=== PATIENT | male | born 1955 | race African-American/Black ===

== ENCOUNTER 2022-02-02 19:32 | Inpatient (IN) | payer OTHER, MEDICARE ==
[~2022-02-02] VITALS: Ht 182.9 cm; Wt 76.3 kg
[2022-02-02] MEDS ORDERED: ALBUTEROL SULFATE 2.5 MG/3 ML NEBU ONE (19:40)
[2022-02-02] MEDS ORDERED: IPRATROPIUM BROMIDE 0.5 MG/2.5 ML NEBU ONE (19:41)
[2022-02-02] MEDS ORDERED: methylPREDNISolone SOD SUCC 125 MG/2 ML VIAL IV ONE (19:45)
[2022-02-02] MEDS ORDERED: ALBUTEROL SULFATE 2.5 MG/3 ML NEBU NEB ONE (19:45)
[2022-02-02] MEDS ORDERED: IPRATROPIUM BROMIDE 0.5 MG/2.5 ML NEBU NEB ONE (19:45)
[2022-02-02] MEDS ORDERED: methylPREDNISolone SOD SUCC 125 MG/2 ML VIAL ONE (20:04)
[2022-02-02 20:07] LABS: HEMATOCRIT 42.6 % (36.7-47.1); MEAN CORPUSCULAR HEMOGLOBIN 30.1 uug (23.8-33.4); MEAN CORPUSCULAR VOLUME 92.7 fL (73.0-96.2); PLATELET COUNT (AUTO) 226 K/uL (152-348)
[2022-02-02] MEDS ORDERED: NITROGLYCERIN 0.4 MG/TAB BOTTLE SL ONE ×2 (20:09→20:15)
--- NOTE | 2022-02-02 20:10 | NUR ---
Administered 1st tab of Nitro.
--- NOTE | 2022-02-02 20:20 | NUR ---
Administered 2nd dose of Nitro.
[2022-02-02 20:21] LABS: ABG BASE EXCESS -3.2 mmol/L; ABG HCO3 22.8 mmol/L; ABG PCO2 44.4 mmHg (35.0-45.0); ABG PH 7.329 (7.350-7.450); ABG PO2 66.4 mmHg (75.0-100.0); ABG SITE LEFT RADIAL; COHb 0.8 % (0.5-1.5); MetHb 0.3 % (0.0-1.5); O2Hb 92.1 % (94.0-97.0); VENT MODE BIPAP
--- NOTE | 2022-02-02 20:27 | NUR ---
Administered 3rd dose of Nitro.
[2022-02-02 20:28] LABS: ALANINE AMINOTRANSFERASE 26 U/L (16-63); ALKALINE PHOSPHATASE 130 U/L (50-136); ASPARTATE AMINOTRANSFERASE 19 U/L (15-37); BILIRUBIN,DIRECT 0.1 mg/dL (0.0-0.2); BILIRUBIN,TOTAL 0.4 mg/dL (0.2-1.0); CARBON DIOXIDE 30 mmol/L (21-32); CHLORIDE 102 mmol/L (98-107); CREATININE 2.2 mg/dL (0.6-1.3); POTASSIUM 3.9 mmol/L (3.5-5.1); TOTAL PROTEIN, SERUM 6.6 g/dL (6.4-8.2); UREA NITROGEN, BLOOD 43 mg/dL (7-18)
[2022-02-02 21:12] LABS: GLUCOSE 429 mg/dL (74-106)
[2022-02-02] MEDS ORDERED: FUROSEMIDE 40 MG/4 ML VIAL IV ONE (21:30)
[2022-02-02] MEDS ORDERED: FUROSEMIDE 40 MG/4 ML VIAL ONE (21:45)
[2022-02-02] MEDS ORDERED: ASPIRIN 81 MG TAB.CHEW PO ONE (22:00)
[2022-02-02] MEDS ORDERED: INSULIN REGULAR, HUMAN 300 UNIT/3 ML VIAL SQ ONE (22:00)
[2022-02-02] MEDS ORDERED: ASPIRIN 81 MG TAB.CHEW ONE ×2 (22:20→22:34)
[2022-02-02] MEDS ORDERED: INSULIN LISPRO 300 UNIT/3 ML VIAL SQ ONE (22:23)
[2022-02-02] MEDS ORDERED: INSULIN REGULAR, HUMAN 300 UNIT/3 ML VIAL ONE (22:29)
[2022-02-02] MEDS ORDERED: CEFTRIAXONE 1 G in IV DEXTROSE 5% 50 ML IV ONE (22:30)
--- NOTE | 2022-02-02 23:14 | NUR ---
Received call from patient's , Trudi Hodge, , will call back later with list of medications.
[2022-02-02] MEDS ORDERED: CEFTRIAXONE /D5W 50ML IVPB **ER PYXIS IV ONE ×2 (23:16→23:20)
[2022-02-03] VITALS (10 sets, daily range): BP systolic 128–180; BP diastolic 88–149
[2022-02-03] MEDS ORDERED: INSULIN REGULAR, HUMAN 300 UNIT/3 ML VIAL SQ PRN (00:45)
[2022-02-03] MEDS ORDERED: DEXTROSE 50% 50 ML DISP.SYRIN IV PRN ×2 (00:45→08:30)
[2022-02-03] MEDS ORDERED: CLONIDINE HCL 0.1 MG TABLET PO PRN (01:00)
[2022-02-03] MEDS ORDERED: MORPHINE SULFATE 2 MG/1 ML DISP.SYRIN IV PRN (01:00)
[2022-02-03] MEDS ORDERED: ONDANSETRON 4 MG/2 ML VIAL IV PRN (01:00)
[2022-02-03] MEDS ORDERED: ACETAMINOPHEN 325 MG TABLET PO PRN (01:00)
--- NOTE | 2022-02-03 01:00 | NUR ---
Pt will admitted to [facility], under the care of Dr. Ontiveros and Dr. Chang (family service aide) to rm 318. Admitting dx N-Stemi.
--- NOTE | 2022-02-03 01:04 | NUR ---
Report given to nurse Altamirano.
--- NOTE | 2022-02-03 02:30 | NUR ---
Pt stable, V/S are WNL, AOX4, no signs of sob, SpO2 100%. Transported via gurney with O2 on via nasal cannula at 3Lpm, to [facility], Rm 318, received by nurse Evelia. Belongings including walker were brought with the patient.
[2022-02-03] MEDS ORDERED: ALBUTEROL SULFATE 2.5 MG/3 ML NEBU NEB PRN (03:30)
--- NOTE | 2022-02-03 04:00 | NUR ---
Received 66 yr old male form home diagnosed with CHF/ARF/ACS/?PNA under Dr. Ontiveros. AAOx4. No SOB noted. Denies any chest pain or discomfort. Noted non-productive cough. O2 at 1 LPM sating at 97%. BP 180/149. Administered Catapres as ordered for SBP >160. Noted swelling of right foot, non-pitting. Has peripheral neuropathy on BLE and mild weakness on right hand. Glaucoma on both eyes. Uses walker to ambulate. Skin is intact. IV site on right hand 20g intact and patent. Routine admission done. All needs attended. Safety precautions maintained.
[2022-02-03] MEDS: PANTOPRAZOLE SODIUM 40 MG TABLET.DR PO SCH (06:12)
[2022-02-03] MEDS: hydrALAZINE HCL 25 MG TABLET PO PRN ×2 (07:30→14:34)
[2022-02-03] MEDS ORDERED: BLOOD SUGAR DIAGNOSTIC 1 EACH STRIP VI SCH (07:30)
--- NOTE | 2022-02-03 07:35 | NUR ---
elevated trop and bp 180/114 hr 84. pt is asymptomatic. md notified. will cont to monitor. Addendum: 02/03/22 at 0754 by ARIK NEGRON RN no new order given Addendum: 02/03/22 at 0910 by ARIK NE[address]ON RN dr. hall ordered labetalol 10mg iv q4hprn. for sytolic >160. Addendum: 02/03/22 at 0911 by ARIK NEGRON RN bp reassessment 158/91 hr 86,. will cobnt to monitor
[2022-02-03 07:41] LABS: MEAN CORPUSCULAR HEMOGLOBIN 30.5 uug (23.8-33.4); MEAN CORPUSCULAR VOLUME 91.4 fL (73.0-96.2); PLATELET COUNT (AUTO) 206 K/uL (152-348)
[2022-02-03 08:04] LABS: BILIRUBIN,TOTAL 0.4 mg/dL (0.2-1.0); CREATININE 2.2 mg/dL (0.6-1.3); PHOSPHOROUS 3.6 mg/dL (2.5-4.9); POTASSIUM 3.8 mmol/L (3.5-5.1); TOTAL PROTEIN, SERUM 5.7 g/dL (6.4-8.2)
[2022-02-03] MEDS ORDERED: CYCL5TAB PO (08:43)
[2022-02-03] MEDS ORDERED: PERP2TAB5 PO (08:43)
[2022-02-03] MEDS ORDERED: LABETALOL HCL 100 MG/20 ML VIAL IV PRN (09:00)
[2022-02-03] MEDS: ASPIRIN 325 MG TABLET PO SCH (09:01)
[2022-02-03] MEDS: AMLODIPINE 10 MG TABLET PO SCH (09:03)
[2022-02-03] MEDS: HEPARIN SODIUM,PORCINE 5,000 UNITS/ML VIAL SQ SCH ×2 (09:04→20:45)
[2022-02-03] MEDS ORDERED: LIRA0.6P SQ (10:00)
[2022-02-03] MEDS ORDERED: MULT-594 PO (10:00)
[2022-02-03] MEDS ORDERED: CHOL-35 PO (10:00)
[2022-02-03] MEDS ORDERED: CHOL400C8 (10:00)
[2022-02-03] MEDS ORDERED: INSU3INS6 SQ (10:00)
[2022-02-03] MEDS ORDERED: LISI10TA29 PO (10:00)
[2022-02-03] MEDS ORDERED: AMLO10TA59 PO (10:00)
[2022-02-03] MEDS: BLOOD SUGAR DIAGNOSTIC 1 EACH STRIP VI SCH ×3 (12:11→20:35)
[2022-02-03] MEDS: MULTIVITAMINS,THERAPEUTIC TABLET PO SCH (12:32)
[2022-02-03] MEDS: CHOLECALCIFEROL 1,000 UNIT TABLET PO SCH (12:32)
[2022-02-03] MEDS: INSULIN REGULAR, HUMAN 300 UNIT/3 ML VIAL SQ PRN ×2 (12:49→17:48)
[2022-02-03] MEDS ORDERED: PERPHENAZINE 4 MG TABLET PO SCH ×2 (17:00)
--- NOTE | 2022-02-03 17:50 | NUR ---
pt relaxed on bed. bp is wnl. sinus on tele. no acute distress noted. no complain of chest pain. no sob complain. on ra saturating 98-99%.
[2022-02-03] MEDS: INSULIN REGULAR, HUMAN 300 UNITS/3 ML VIAL SQ PRN (20:42)
[2022-02-03] MEDS: INSULIN GLARGINE,HUM 300 UNITS/3 ML CARTRIDGE SQ SCH (20:55)
[2022-02-03] MEDS: FUROSEMIDE 20 MG/2 ML VIAL IV SCH (20:58)
[2022-02-03] MEDS ORDERED: INSULIN GLARGINE,HUM 300 UNITS/3 ML CARTRIDGE SQ SCH (21:00)
[2022-02-04] VITALS: BP 150/98
[2022-02-04 04:00] VITALS: BP 139/88
--- NOTE | 2022-02-04 04:00 | NUR ---
Patient slept intermittently. Denies chest pain. Sinus on tele. No noted acute distress. No SOB, on RA saturating 96-98%. BP WNL.
[2022-02-04] MEDS: PANTOPRAZOLE SODIUM 40 MG TABLET.DR PO SCH (06:32)
[2022-02-04] MEDS: BLOOD SUGAR DIAGNOSTIC 1 EACH STRIP VI SCH ×4 (06:38→21:18)
[2022-02-04 07:21] LABS: HEMATOCRIT 37.9 % (36.7-47.1); MEAN CORPUSCULAR HEMOGLOBIN 30.7 uug (23.8-33.4); MEAN CORPUSCULAR VOLUME 90.3 fL (73.0-96.2); PLATELET COUNT (AUTO) 202 K/uL (152-348)
[2022-02-04 07:45] LABS: CREATININE 2.1 mg/dL (0.6-1.3); PHOSPHOROUS 3.3 mg/dL (2.5-4.9); POTASSIUM 3.4 mmol/L (3.5-5.1)
[2022-02-04 07:48] VITALS: BP 153/105
[2022-02-04] MEDS ORDERED: AMLODIPINE 10 MG TABLET PO SCH (09:00)
[2022-02-04] MEDS: AMLODIPINE 10 MG TABLET PO SCH (09:05)
[2022-02-04] MEDS: CHOLECALCIFEROL 1,000 UNIT TABLET PO SCH (09:06)
[2022-02-04] MEDS: ASPIRIN 325 MG TABLET PO SCH (09:06)
[2022-02-04] MEDS: FUROSEMIDE 20 MG/2 ML VIAL IV SCH ×2 (09:06→20:40)
[2022-02-04] MEDS: MULTIVITAMINS,THERAPEUTIC TABLET PO SCH (09:07)
[2022-02-04] MEDS: HEPARIN SODIUM,PORCINE 5,000 UNITS/ML VIAL SQ SCH ×2 (09:10→21:26)
[2022-02-04] MEDS ORDERED: hydrALAZINE HCL 50 MG TABLET PO SCH (09:45)
[2022-02-04 11:45] VITALS: BP 176/109
[2022-02-04] MEDS ORDERED: POTASSIUM CHLORIDE 10 MEQ TAB.PRT.SR PO ONE (12:00)
[2022-02-04] MEDS ORDERED: levoFLOXacin 750MG/D5W 750 MG in PREMIXED 1 EACH IV SCH (12:00)
[2022-02-04] MEDS: INSULIN REGULAR, HUMAN 300 UNIT/3 ML VIAL SQ PRN (12:11)
[2022-02-04 15:30] VITALS: BP 176/96
[2022-02-04] MEDS: INSULIN REGULAR, HUMAN 300 UNITS/3 ML VIAL SQ PRN ×2 (16:52→22:31)
[2022-02-04 20:00] VITALS: BP 157/99
[2022-02-04] MEDS: INSULIN GLARGINE,HUM 300 UNITS/3 ML CARTRIDGE SQ SCH (21:29)
[2022-02-04] MEDS: CARVEDILOL 6.25 MG TABLET PO SCH (21:30)
[2022-02-04] MEDS: hydrALAZINE HCL 50 MG TABLET PO SCH (21:37)
[2022-02-05] VITALS: BP 116/82
[2022-02-05 04:00] VITALS: BP 157/100
[2022-02-05] MEDS: hydrALAZINE HCL 50 MG TABLET PO SCH ×2 (05:20→14:46)
--- NOTE | 2022-02-05 05:23 | NUR ---
New order for carvedilol 6.25mg not administered, medication not yet issued by pharmacy.
[2022-02-05] MEDS: PANTOPRAZOLE SODIUM 40 MG TABLET.DR PO SCH (06:59)
[2022-02-05] MEDS: BLOOD SUGAR DIAGNOSTIC 1 EACH STRIP VI SCH ×3 (06:59→17:28)
[2022-02-05 07:17] LABS: CARBON DIOXIDE 31 mmol/L (21-32); CHLORIDE 107 mmol/L (98-107); GLUCOSE 70 mg/dL (74-106); POTASSIUM 3.1 mmol/L (3.5-5.1); UREA NITROGEN, BLOOD < 1 mg/dL (7-18)
--- NOTE | 2022-02-05 07:49 | NUR ---
Blood sugar at 0630 was 63mg/dl. Repeat blood sugar is 100mg/dl no sign and symptoms of hypo/hyperglycemia noted.
[2022-02-05] MEDS ORDERED: POTASSIUM CHLORIDE 20 MEQ TAB.PRT.SR PO ONE (08:45)
[2022-02-05] MEDS ORDERED: POTASSIUM CHLORIDE 20 MEQ POWDER PACKET GT ONE (08:45)
[2022-02-05] MEDS: ASPIRIN 325 MG TABLET PO SCH ×2 (09:49→09:56)
[2022-02-05] MEDS: MULTIVITAMINS,THERAPEUTIC TABLET PO SCH ×2 (09:49→09:57)
[2022-02-05] MEDS: CHOLECALCIFEROL 1,000 UNIT TABLET PO SCH ×2 (09:49→09:56)
[2022-02-05] MEDS: AMLODIPINE 10 MG TABLET PO SCH ×2 (09:51→09:56)
[2022-02-05] MEDS: FUROSEMIDE 40 MG TABLET PO SCH ×2 (09:51→09:56)
[2022-02-05] MEDS: HEPARIN SODIUM,PORCINE 5,000 UNITS/ML VIAL SQ SCH (09:52)
[2022-02-05] MEDS: CARVEDILOL 6.25 MG TABLET PO SCH ×2 (10:01→18:46)
[2022-02-05 11:00] VITALS: BP 162/70
[2022-02-05 11:06] LABS: A/G RATIO 1.3 (0.7-1.7); ALPHA-1-GLOBULIN 0.2 g/dL (0.0-0.4); ALPHA-2-GLOBULIN 0.6 g/dL (0.4-1.0); BETA GLOBULIN 0.8 g/dL (0.7-1.3); GAMMA GLOBULIN 0.8 g/dL (0.4-1.8); GLOBULIN, TOTAL 2.4 g/dL (2.2-3.9); M-SPIKE Not Observed g/dL (Not Observed)
[2022-02-05] MEDS ORDERED: Insulin Glargine,Hum SQ (11:12)
[2022-02-05] MEDS ORDERED: ASPI81TA31 PO (11:12)
[2022-02-05] MEDS ORDERED: FURO40TA5 PO (11:12)
[2022-02-05] MEDS ORDERED: CARV6.252 PO (11:12)
[2022-02-05] MEDS ORDERED: HYDR50TA68 PO (11:12)
[2022-02-05 15:01] VITALS: BP 143/90
[2022-02-05 18:46] VITALS: BP 145/86
--- NOTE | 2022-02-05 18:48 | NUR ---
PATIENT'S DICHARGE INSTRUCTIONS COMPLETED. PATIENT VERBALIZED UNSERSTSNDING. PAPER WORK COMPLETED AND SIGNED BY THE PATIENT, SAME GIVEN TO THE PATIENT WITH HIS PRESCRIPTION. TREVOR NGUYEN PATIENT'S WAS CALLED SHE INSTRUCTED FOR LIFT PLANNING COORDINATOR WHEN PATIENT IS READY AND SHE TURNED AROUND AND SAID THAT SHE HAS NO TRANSPORTATION FOR THE PATIENT. AMBULANCE WAS CALLED FOR PATIENT'S PLANNING COORDINATOR AND THEY WILL BE HERE AT ABOUT 2030 HOURS FOR PATIENT'S PLANNING COORDINATOR. PATIENT IS AWARE. PATIENT IS STABLE AND IN HIS ROOM. BLOOD SUGAR BEFORE DINNER READ 133MG/DL.
[2022-02-05] MEDS ORDERED: INSULIN GLARGINE,HUM 300 UNITS/3 ML CARTRIDGE SQ SCH (21:00)
--- NOTE | 2022-02-05 21:00 | NUR ---
Patient discharge home, in fair but stable condition, patient took all his belongings, discharge paper work was with the patient.
[2022-02-06 16:06] LABS: *PEU ALBUMIN, UR 63.2 % (.); *PEUALPHA-1-GLOBULIN, UR 4.5 % (.); *PEUBETA GLOBULIN, UR 13.2 % (.)
== END 2022-02-05 20:00 | disposition home health service (06) | DRG 291 ==
LOC: ER 19:32 → MEDSURG3 02-03 00:47 → TELE-TD3 02-03 01:13 → TELE3 02-04 10:35
PROVIDERS: ADMIT Internal Medicine
DX: I13.0 Hypertensive heart and chronic kidney disease with heart failure and stage 1 through stage 4 chronic kidney disease, or unspecified chronic kidney disease (principal); I50.43 Acute on chronic combined systolic (congestive) and diastolic (congestive) heart failure; J96.01 Acute respiratory failure with hypoxia; N17.0 Acute kidney failure with tubular necrosis; J18.9 Pneumonia, unspecified organism; I16.1 Hypertensive emergency; E85.9 Amyloidosis, unspecified; J44.0 Chronic obstructive pulmonary disease with (acute) lower respiratory infection; I42.9 Cardiomyopathy, unspecified; E87.6 Hypokalemia; F17.210 Nicotine dependence, cigarettes, uncomplicated; I25.10 Atherosclerotic heart disease of native coronary artery without angina pectoris; Z20.822 Contact with and (suspected) exposure to COVID-19; N18.9 Chronic kidney disease, unspecified; Z59.00 Homelessness unspecified; E11.22 Type 2 diabetes mellitus with diabetic chronic kidney disease; E11.65 Type 2 diabetes mellitus with hyperglycemia; D64.9 Anemia, unspecified; E88.09 Other disorders of plasma-protein metabolism, not elsewhere classified; Z74.09 Other reduced mobility; R26.81 Unsteadiness on feet; F31.9 Bipolar disorder, unspecified; Z79.4 Long term (current) use of insulin
CPT/HCPCS: 36415; 36600; 71045; 76770; 83605; 83735; 84100; 84155; 84165; 84166; 84443; 84484; 85025; 85730; 87040; 93005; 93307; 94660; G0378; J0696; J1644; J1815; J1940; J1956; J2930; J3590